=== PATIENT | female | born 1965 | race Caucasian/White ===

== ENCOUNTER 2016-09-29 16:31 | Emergency (ER) | payer OTHER, MEDICARE ==
[~2016-09-29] VITALS: Ht 152.4 cm; Wt 47.2 kg
[~2016-09-29 16:31] MED LIST: AMLODIPINE10 MG PO; DULERA1 ARO INH; LEVEMIR FL300 UNITS/ SC; NATURAL IRON65 MG PO; NEURONTIN100 MG PO; NOVOLOG100 U/ML SC; PANTOPRAZOLE SO40 MG PO; PRINIVIL 5MG5 MG PO; RENAGEL 800MG800 MG PO; RENO CAPS1 SGL PO; SIMVASTATIN10 MG PO; VIBRAMYCIN 100100 MG PO
[2016-09-29 16:38] VITALS: BP 124/63
--- NOTE | 2016-09-29 17:22 | RADIOLOGY REPORT ---
EXAMINATION: XR CHEST CLINICAL INFORMATION: Shortness of breath on exertion. Not able to take a deep breath in COMPARISON: Chest x-ray 03/08/2013 TECHNIQUE: 2 views of the chest were obtained. FINDINGS: Lungs are clear. No pulmonary vascular congestion. No infiltrate or pleural effusion. The heart size is normal. The cardiac and mediastinal contours are normal. There are multilevel degenerative changes of dorsal spine. IMPRESSION: Unremarkable examination.
--- NOTE | 2016-09-29 17:48 | ED INFLUENZA/URI COMPLAINT ---
History of Present Illness General Chief Complaint: Upper Respiratory Sx/Fever Stated Complaint: SENT IN BY PCP TO R/O PNA Source: patient Exam Limitations: no limitations Vital Signs & Intake/Output Vital Signs & Intake/Output Vital Signs Date Time Temp Pulse Resp B/P Pulse O2 O2 Flow FiO2 Ox Delivery Rate 09/29 1638 96.5 88 20 124/63 99 Room Air Room Air Allergies Coded Allergies: amoxicillin (RASH 09/29/16) calcium (From PHOSLYRA) (DIARRHEA 09/29/16) cefepime (KIDNEYS STOPPED WORKING 09/29/16) ciprofloxacin (From CIPRO) (RASH ALL OVER ENTIRE BODY 09/29/16) clindamycin (RASH 09/29/16) erythromycin base (RASE 09/29/16) metoprolol (UNKNOWN 09/29/16) sevelamer (From RENVELA) (DIARRHEA 09/29/16) Reconcile Medications Albuterol Sulfate (Proair Hfa) 90 MCG HFA.AER.AD 2 PUF INH PRN ASTHMA ( Reported) Amlodipine Besylate 5 MG TABLET 1 TAB PO QAM BP (Reported) B Complex & C No.20/Folic Acid (Renal Caps Softgel) 1 MG CAPSULE 1 CAP PO DAILY SUPPLEMENT (Reported) Benzonatate (Tessalon Perle) 100 MG CAPSULE 1 CAP PO TID PRN COUGH Calcium Acetate 667 MG TABLET 3 TAB PO WM PHOSPHORUS BINDER (Reported) Doxycycline Hyclate 100 MG CAPSULE 1 CAP PO BID BRONCHITIS Fluticasone/Salmeterol (Advair 250-50 Diskus) 250 MCG-50 MCG/DOSE BLST.W.DEV 1 PUF INH BID ASTHMA (Reported) Furosemide (Lasix) 40 MG TABLET 1 TAB PO DAILY DIURETIC (Reported) Insulin Aspart (Novolog) 100 UNIT/ML VIAL DM (Reported) Insulin Detemir (Levemir) 100 UNIT/ML VIAL 13 UNITS SC QPM DM (Reported) Lisinopril 2.5 MG TABLET 1 TAB PO QAM BP (Reported) Ondansetron HCl 4 MG TABLET 2 TAB PO QAM N/V (Reported) Pantoprazole Sodium 40 MG TABLET.DR 1 TAB PO QAM GI (Reported) Simvastatin (Simvastatin*) 10 MG TABLET 1 TAB PO QPM CHOLESTEROL (Reported) Triage Note: PT TO ED WITH C/O "I'VE HAD THE FLU ALL WEEK, I'M FEELING BETTER NOW, BUT I STILL CAN'T TAKE A DEEP BREATH, SO THE DOCTOR WANT TO MAKE SURE I DON'T HAVE PNEUMONIA". Triage Nurses Notes Reviewed? yes Onset: Gradual Duration: day(s): (4) Timing: remote history Severity: moderate Prior Episodes/Possible Cause: occassional episodes No Modifying Factors: none Associated Symptoms: cough HPI: Patient is a 51-year-old female history of renal failure, diabetes, hypertension presenting to the emergency department if complaint of dry cough that's been worsening over the past 4 or 5 days. She reports that initially she had fevers over the weekend which have resolved. Her had the flu and she feels like she caught it. Denies taking anything [id number] to help with cough. She has been using her nebulizer at home with little to no relief. Shortness of breath only with coughing. Denies chest pain or palpitations. No abdominal pain. No nausea vomiting or diarrhea. Denies recent travel. (ANTOINETTE LI) Past History Travel History Traveled to [place] past 21 day No Medical History Any Pertinent Medical History? 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 No (ANTOINETTE LI) Review of Systems Review of Systems Constitutional: Reports: see HPI, fever. Denies: malaise. Comments Review of systems: See HPI, All other systems negative. Constitutional, no weight loss HEENT: No visual changes no sore throat Cardiovascular: No chest pain ,palpitation , orthopnea or ankle swelling Skin, no jaundice no rashes Respiratory: No sputum or hemoptysis GI: No nausea no vomiting : No dysuria No hematuria Muscle skeletal: no back pain, no neck pain, Neurologic: No numbness no confusion Psych: No stress anxiety or depression,. Heme/endocrine: No bruising no bleeding no polyuria or polydipsia Immunology: No splenectomy or history of AIDS (ANTOINETTE LI) Physical Exam Physical Exam General Appearance: well developed/nourished, no apparent distress, alert Ears, Nose, Throat: nasal congestion Comments: Well-developed well-nourished person in no acute distress HEENT: Pupils equally round and reactive to light and accommodation. Nose is atraumatic. External auditory canal and Tympanic membranes clear. Pharynx normal. No swelling or edema. MOIST MUCOUS MEMBRANES . Clear nasal discharge bilaterally. Conjunctiva clear. Neck: Supple, no lymphadenopathy, normal range of motion without pain or tenderness Back: Nontender Cardiovascular: Regular rate and rhythms no murmurs rubs or gallops, normal JVP Respiratory: Chest nontender. No respiratory distress.minimal wheezing noted to right base. No rhonchi or crackles. Dry cough on exam. Extremity: No edema Neuro: Alert oriented x3 Skin: No appreciable rash on exposed skin, skin is warm and dry. Psych: Mood and affect is normal, memory and judgment is normal. Core Measures Severe Sepsis Present: No Septic Shock Present: No (ANTOINETTE LI) Progress Differential Diagnosis: influenza, pneumonia, pharyngitis, sinusitis Plan of Care: 09/29/2016 6:19:31 PM patient is well-appearing in no acute distress vitals are stable. Mild wheezing noted to right base. Otherwise clear. X-ray is unremarkable. Patient does have dry cough on exam. Likely bronchitis. History of smoking. Patient will be treated with antibiotics, specifically doxycycline as she has been on this in the past and it has worked for her. She'll continue using nebulizer treatments. Given Tessalon Perles for cough. She'll follow-up with her primary care physician in the next 24-48 hours or return for any worsening symptoms. Initial ED EKG: none (ANTOINETTE LI) Departure Departure Time of Disposition: 1812 Disposition: HOME OR SELF CARE Condition: Stable Clinical Impression Primary Impression: Bronchitis Referrals: UNKNOWN (PCP/Family) Additional Instructions: Follow-up with your primary care physician in the next 2-4 days. Take antibiotics and cough medication as prescribed. Continue using nebulizer treatments at home. Increase fluids. Return for worsening symptoms or concerns. Departure Forms: Customer Survey General Discharge Information Prescriptions: Current Visit Scripts Benzonatate (Tessalon Perle) 1 CAP PO TID PRN COUGH #21 CAP Doxycycline Hyclate 1 CAP PO BID #20 CAP (ANTOINETTE LI) PA/TIMBER SUPERVISOR Co-Sign Statement Statement: ED Attending supervision documentation- [] I saw and evaluated the patient. I have also reviewed all the pertinent lab results and diagnostic results. I agree with the findings and the plan of care as documented in the PA's/TIMBER SUPERVISOR's documentation. [X] I have reviewed the ED Record and agree with the PA's/TIMBER SUPERVISOR's documentation. [] Additions or exceptions (if any) to the PAs/TIMBER SUPERVISOR's note and plan are summarized below: [] (ELLI REYNAGA DO)
[2016-09-29] MEDS ORDERED: CALCIUM ACETAT667 M2 PO (18:06)
[2016-09-29] MEDS ORDERED: PANTOPRAZOLE SO40 M1 PO (18:06)
[2016-09-29] MEDS ORDERED: AMLODIPINE BESYL5 M1 PO (18:06)
[2016-09-29] MEDS ORDERED: LISINOPRIL2.5 M1 PO (18:06)
[2016-09-29] MEDS ORDERED: SIMVASTATIN10 M1 PO (18:06)
[2016-09-29] MEDS ORDERED: LASIX40 M1 PO (18:07)
[2016-09-29] MEDS ORDERED: ONDANSETRON HCL4 MG PO (18:07)
[2016-09-29] MEDS ORDERED: RENAL CAPS SOFTG1 MG PO (18:07)
[2016-09-29] MEDS ORDERED: LEVEMIR100 UNIT/1 SC (18:08)
[2016-09-29] MEDS ORDERED: PROAIR HFA8.5 GM INH (18:08)
[2016-09-29] MEDS ORDERED: ADVAIR 250-501 EACH INH (18:08)
[2016-09-29] MEDS ORDERED: NOVOLOG100 UNIT/2 SC (18:08)
[2016-09-29] MEDS ORDERED: TESSALON PERLE100 M1 PO (18:15)
[2016-09-29] MEDS ORDERED: DOXYCYCLINE HY100 M2 PO (18:15)
== END 2016-09-29 18:32 ==
LOC: ERH 16:31
DX: J40 Bronchitis, not specified as acute or chronic (principal)